=== PATIENT | male | born 1965 | race Caucasian/White ===

== ENCOUNTER 2018-01-25 20:40 | Emergency (ER) | payer OTHER ==
[~2018-01-25] VITALS: Ht 182.9 cm; Wt 101.0 kg
[~2018-01-25 20:40] MED LIST: NOHOMEMEDS
[2018-01-25 21:21] LABS: HEMATOCRIT 44.2 % (38.0-50.0); HEMOGLOBIN 15.6 G/DL (12.5-16.6); MCH 34.1 PG (29.0-34.0); MCHC 35.3 G/DL (30.0-36.0); MCV 96.7 FL (86-99); PLATELET COUNT 192 K/uL (156-360); RBC DIS.WIDTH-CV 12.7 % (11.8-14.6); RBC DIS.WIDTH-SD 45.4 % (39-53); RED BLOOD COUNT 4.57 M/uL (4.00-5.50); WHITE BLOOD COUNT 18.8 K/uL (4.1-10.2)
[2018-01-25 21:29] LABS: CHLORIDE 104 mEq/L (99-109); POTASSIUM 3.6 mEq/L (3.7-5.4); SODIUM 138 mEq/L (136-147)
[2018-01-25 21:30] LABS: GLUCOSE 119 mg/dL (70-99)
[2018-01-25 21:34] LABS: CREATININE 0.7 mg/dL (0.6-1.3); GFR ESTIMATE (CALCULATED) > 59 mL/min/ (58.99-99999)
[2018-01-25 21:35] LABS: UREA NITROGEN (BUN) 22 mg/dL (9-23)
[2018-01-25 21:42] LABS: TROP-I INTERPRETATION NEGATIVE; TROPONIN-I < 0.01 ng/mL (0.0-0.30)
[2018-01-25 21:58] LABS: ALBUMIN 4.1 g/dL (3.2-4.8)
[2018-01-25 22:01] LABS: TOTAL PROTEIN 7.1 g/dL (6.4-8.3)
[2018-01-25 22:04] LABS: ALKALINE PHOSPHATASE 78 IU/L (3-129)
[2018-01-25 22:06] LABS: AST (GOT) 21 IU/L (2-34); DIRECT BILIRUBIN 0.4 mg/dL (0.0-0.3)
[2018-01-25 22:07] LABS: ALT (GPT) 14 IU/L (3-49); LIPASE 11 U/L (1.0-51.0)
[2018-01-25 23:48] LABS: APPEARANCE CLEAR ((CLEAR)); BILIRUBIN NEGATIVE; BLOOD NEGATIVE; COLOR YELLOW ((YELLOW)); GLUCOSE (STRIP) NEGATIVE; KETONES 20; LEUKOCYTES NEGATIVE; NITRITE NEGATIVE; PROTEIN (STRIP) NEGATIVE; SPECIFIC GRAVITY 1.017 (1.000-1.030); UCUL ADDED? NO
[2018-01-26] MEDS ORDERED: GABAPENTIN400 MG PO (01:12)
[2018-01-26] MEDS ORDERED: MELOXICAM15 MG PO (01:12)
[2018-01-26] MEDS ORDERED: SPIRIVA1 INHALATI IH (01:12)
[2018-01-26] MEDS ORDERED: SIMVASTATIN40 MG PO (01:12)
[2018-01-26] MEDS ORDERED: TYLENOL EXTRA500 MG PO (01:12)
[2018-01-26] MEDS ORDERED: ADVAIR 250/501 DISK IH (01:12)
[2018-01-26] MEDS ORDERED: CYANOCOBALAM1000 MCG PO (01:13)
[2018-01-26] MEDS ORDERED: VITAMIN D31000 UNIT PO (01:13)
[2018-01-26] MEDS ORDERED: PREDNISONE20 MG PO (01:51)
[2018-01-26] MEDS ORDERED: PROVENTIL,2.5 MG/3 M IH (01:51)
[2018-01-26] MEDS ORDERED: LEVAQUIN750 MG PO (01:51)
[2018-01-26 02:01] VITALS: BP 97/65
== END 2018-01-26 02:05 | disposition left against medical advice (07) ==
LOC: EME 20:40
PROVIDERS: Emergency Medicine
DX: J18.9 Pneumonia, unspecified organism (principal); J44.1 Chronic obstructive pulmonary disease with (acute) exacerbation; J44.0 Chronic obstructive pulmonary disease with (acute) lower respiratory infection; K80.20 Calculus of gallbladder without cholecystitis without obstruction; E78.5 Hyperlipidemia, unspecified; F17.200 Nicotine dependence, unspecified, uncomplicated
CPT/HCPCS: 70450; 71046; 74177; 80048; 80076; 81003; 83605; 83690; 83880; 84484; 85027; 87040; 87502; 93005; 94640; 94640 76; 94799; 99281; 99285; J1956; J2765; J2930; J7030